=== PATIENT | female | born 1990 | race Hispanic/Latino ===

== ENCOUNTER 2016-11-21 01:12 | Day surgery (SDC) | payer OTHER ==
[~2016-11-21] VITALS: Ht 152.4 cm; Wt 44.2 kg
[~2016-11-21 01:12] MED LIST: ESOM40CA41 PO; LORA10CA PO; ONDA-53 PO; RANI150C4 PO
[2016-11-21] MEDS ORDERED: Sodium Chloride LOK Flush 10 mL Syringe IV PRN (06:00)
[2016-11-21] MEDS ORDERED: 0.9% Sodium Chloride 1,000 ML IV SCH (06:00)
[2016-11-21] MEDS ORDERED: fentaNYL-PF 50 mCg/mL 2 mL Inj IVPUSH PRN (06:00)
[2016-11-21 10:23] VITALS: BP 108/72; PULSE 72; RESP 19; O2SAT 97
[2016-11-21 11:00] VITALS: BP 92/62; PULSE 94; RESP 14; O2SAT 99
[2016-11-21 11:11] VITALS: BP 106/71; PULSE 93; RESP 12; O2SAT 100
[2016-11-21 11:25] VITALS: BP 101/66; PULSE 102; RESP 14; O2SAT 100
--- NOTE | 2016-11-21 15:03 | ENDO ---
[address] [address] ENDOSCOPY PROCEDURE PATIENT: EULALIO LITTLEJOHN : 1990 MR#: [id number] ADMIT: 11/21/2016 JOB ID: [id number] DATE: 11/21/2016 TYPE OF OPERATION: Esophagogastroduodenoscopy with biopsy. PREOPERATIVE DIAGNOSIS(ES): Gastroesophageal reflux disease. POSTOPERATIVE DIAGNOSIS(ES): Normal upper endoscopy, status post biopsy. ANESTHESIA: 1. Fentanyl 125 mcg. 2. Versed 7 mg IV administered. COMPLICATIONS: None. BLOOD LOSS: Minimal. DESCRIPTION OF PROCEDURE: After risks and benefits were explained to the patient, informed consent was obtained. After anesthesia administered, upper endoscope was inserted into the mouth, intubated into the esophagus, stomach, second portion of duodenum. Mucosa carefully examined. After procedure was done, the scope withdrawn and procedure terminated. FINDINGS: Upon inspection of the esophagus, the esophagus was normal without masses, ulcers, or lesions. Z-line located at 40 cm from incisors. Upon entering the stomach, the stomach was normal without masses, ulcers, or lesions. Retroflexion was normal. Duodenal bulb, first and second portion were normal. Biopsy were taken from the antrum and body of the stomach. Duodenal bulb, first and second portion are normal. IMPRESSIONS: Normal upper endoscopy status post biopsy. RECOMMENDATIONS: 1. Await pathology results. 2. Followup with the GI Clinic as needed.
--- NOTE | 2016-11-22 11:51 | PATH ---
SURGICAL PATHOLOGY Attending Physician:Darinel Pelletier MD CASE STATUS: Signed Out PATIENT NAME: EULALIO LITTLEJOHN PID: [id number] : 1990 DATE COLLECTED:11/21/2016 20:17 SPECIMEN: 1: Stomach, Antrum, Biopsy 2: Gastric, Biopsy CLINICAL HISTORY: 1). ANTRUM BIOPSY 2). BODY GASTRIC BIOPSY FINAL DIAGNOSIS: 1.ANTRUM BIOPSY: ANTRAL MUCOSA WITH NO DIAGNOSTIC ALTERATIONS. Negative for Helicobacter organisms. Negative for intestinal metaplasia. Negative for dysplasia and malignancy. 2.GASTRIC BODY BIOPSY: BODY-TYPE MUCOSA WITH NO DIAGNOSTIC ALTERATIONS. Negative for Helicobacter organisms. Negative for intestinal metaplasia. Negative for dysplasia and malignancy. ICD10 code R10.9 GROSS DESCRIPTION: The specimen is received in two formalin filled containers labeled with the patient's name. 1). The specimen is labeled "gastric antrum" and consists of a 0.5 x 0.3 x 0.2 CM portion of tissue which is entirely submitted in cassette 1A. 2). The specimen is sublabeled "gastric body" and consists of 2 portions of tissue which aggregate to 0.3 x 0.3 x 0.2 CM. The specimen is entirely submitted in cassette 2A. 11/21/2016 [facility] MICRO DESCRIPTION: See diagnosis. ICD-9 CODES: CPT CODES: 1: 18438 2: 81488 Electronically Signed Out Roula Johnson MD [facility] Pathology [facility] [address] [place] [address] Technical component performed at [facility], [facility] [address], [address]
== END 2016-11-21 23:59 | disposition home or self-care (01) ==
LOC: END 01:12
PROVIDERS: ATTEND Internal Medicine Gastroenterology
DX: K21.9 Gastro-esophageal reflux disease without esophagitis (principal)
CPT/HCPCS: 43239; 88305; 99152; J2250; J3010; J7030